=== PATIENT | male | born 1950 | race African-American/Black ===

== ENCOUNTER 2023-06-10 20:12 | Emergency (ER) | payer MEDICARE, MEDICAID ==
[~2023-06-10] VITALS: Ht 172.7 cm; Wt 154.2 kg
[2023-06-10] MEDS ORDERED: IPRATROPIUM BROMIDE 0.5 MG/2.5 ML NEBU ONE (20:23)
[2023-06-10] MEDS ORDERED: ALBUTEROL SULFATE 2.5 MG/3 ML NEBU ONE (20:23)
[2023-06-10] MEDS ORDERED: IPRATROPIUM BROMIDE 0.5 MG/2.5 ML NEBU NEB ONE (20:30)
[2023-06-10] MEDS ORDERED: ALBUTEROL SULFATE 2.5 MG/ 0.5 ML NEBU NEB ONE (20:30)
[2023-06-10 20:35] VITALS: O2SAT 92
[2023-06-10] MEDS ORDERED: MELA3CAP2 PO (20:51)
[2023-06-10] MEDS ORDERED: DILT180T11 PO (20:51)
[2023-06-10] MEDS ORDERED: BUME2TAB7 PO ×2 (20:51)
[2023-06-10] MEDS ORDERED: MULT-1275 PO (20:51)
[2023-06-10] MEDS ORDERED: OMEP20TA5 PO (20:51)
[2023-06-10] MEDS ORDERED: ATOR10TA PO (20:51)
[2023-06-10] MEDS ORDERED: GUAIFENESIN PO (20:51)
[2023-06-10] MEDS ORDERED: ACET-3117 PO (20:51)
[2023-06-10] MEDS ORDERED: POTA10CA43 PO (20:51)
[2023-06-10] MEDS ORDERED: CARV6.252 PO (20:51)
[2023-06-10] MEDS ORDERED: APIX5TAB PO (20:51)
[2023-06-10] MEDS ORDERED: CHOL2000 PO (20:51)
[2023-06-10] MEDS ORDERED: HYDR-894 PO (20:51)
[2023-06-10] MEDS ORDERED: IPRA3AMP23 IH (20:51)
[2023-06-10] MEDS ORDERED: GABA-532 PO (20:51)
[2023-06-10] MEDS ORDERED: ALBU8.5H8 IH (20:51)
[2023-06-10] MEDS ORDERED: BENZ-13 PO (20:51)
[2023-06-10 21:35] VITALS: O2SAT 99
[2023-06-10 21:49] LABS: BASOPHILS % (AUTO) 0.2 % (0.0-2.0); EOSINOPHILS # (AUTO) 1.7 K/uL (0.0-0.7); EOSINOPHILS % (AUTO) 14.7 % (0.0-7.0); HEMATOCRIT 43.6 % (36.7-47.1); HEMOGLOBIN 13.5 g/dL (12.5-16.3); LYMPHOCYTES # (AUTO) 0.7 K/uL (0.8-4.8); LYMPHOCYTES % (AUTO) 6.1 % (20.5-51.5); MEAN CORPUSCULAR HEMOGLOBIN 24.6 uug (23.8-33.4); MEAN CORPUSCULAR HGB CONC 31 g/dL (32.5-36.3); MEAN CORPUSCULAR VOLUME 79.3 fL (73.0-96.2); MONOCYTES # (AUTO) 0.7 K/uL (0.1-1.30); MONOCYTES % (AUTO) 5.7 % (0.0-11.0); NEUTROPHILS # (AUTO) 8.4 K/uL (1.8-8.9); NEUTROPHILS % (AUTO) 73.3 % (38.5-71.5); PLATELET COUNT (AUTO) 212 K/uL (152-348); RED CELL DISTRIBUTION WIDTH 17.8 % (12.1-16.2); WHITE BLOOD COUNT (AUTO) 11.4 K/uL (3.6-10.2)
[2023-06-10 21:55] LABS: DIFFERENTIAL COMMENT 1
[2023-06-10 21:59] LABS: CALCIUM 8.4 mg/dL (8.5-10.1); CARBON DIOXIDE 35 mmol/L (21-32); CHLORIDE 104 mmol/L (98-107); CREATININE 1.5 mg/dL (0.6-1.3); GLUCOSE 150 mg/dL (74-106); POTASSIUM 4.2 mmol/L (3.5-5.1); SODIUM SERUM 141 mmol/L (136-145); UREA NITROGEN, BLOOD 30 mg/dL (7-18)
[2023-06-10 22:11] LABS: ALANINE AMINOTRANSFERASE 18 U/L (16-63); ALBUMIN 2.6 g/dL (3.4-5.0); ALKALINE PHOSPHATASE 99 U/L (50-136); ASPARTATE AMINOTRANSFERASE 13 U/L (15-37); BILIRUBIN,DIRECT 0.2 mg/dL (0.0-0.2); BILIRUBIN,TOTAL 0.4 mg/dL (0.2-1.0); NT-PRO BNP 870 pg/mL (0-125); TOTAL PROTEIN, SERUM 7.6 g/dL (6.4-8.2)
[2023-06-10] MEDS ORDERED: BUMETANIDE 1 MG/4 ML VIAL IV ONE (22:45)
[2023-06-10] MEDS ORDERED: methylPREDNISolone SOD SUCC 125 MG/2 ML VIAL IV ONE (22:45)
[2023-06-10] MEDS ORDERED: BUMETANIDE 1 MG/4 ML VIAL ONE (22:51)
[2023-06-10] MEDS ORDERED: methylPREDNISolone SOD SUCC 125 MG/2 ML VIAL ONE (22:51)
[2023-06-11] MEDS ORDERED: ALBUTEROL SULFATE 2.5 MG/3 ML NEBU ONE (02:57)
[2023-06-11] MEDS ORDERED: ALBUTEROL SULFATE 2.5 MG/3 ML NEBU NEB ONE (03:00)
[2023-06-11 03:15] VITALS: O2SAT 95
[2023-06-11 03:25] VITALS: O2SAT 97
[2023-06-11 03:30] VITALS: O2SAT 99
== END 2023-06-11 04:00 | disposition short-term general hospital (02) ==
LOC: ER 20:14
DX: J96.00 Acute respiratory failure, unspecified whether with hypoxia or hypercapnia (principal); J44.1 Chronic obstructive pulmonary disease with (acute) exacerbation; J81.1 Chronic pulmonary edema; E66.01 Morbid (severe) obesity due to excess calories; N18.9 Chronic kidney disease, unspecified; Z79.899 Other long term (current) drug therapy; Z20.822 Contact with and (suspected) exposure to COVID-19
CPT/HCPCS: 99285; 96374; 71045; 96375; 87426; 87804 ×2; 80076; 80048; 83880; 85025; 84145; 85379; 87040 ×2; 84484; 36415; 93005; 94644; 94640; J3490; J2930; A4606; A4663; J3590